=== PATIENT | female | born 1980 | race American Indian/Alaskan Native ===

== ENCOUNTER 2016-08-24 20:34 | Emergency (ER) | payer SELFPAY ==
[2016-08-24 21:25] VITALS: BP 156/95
[2016-08-24] MEDS ORDERED: MOTRIN PO ONE (23:50)
--- NOTE | 2016-08-25 00:12 | Emergency Department Report ---
ED Lower Extremity HPI - General Chief Complaint: Extremity Problem,Nontraumatic Stated Complaint: RT FOOT SWOLLEN/SORE Time Seen by Provider: 08/24/16 23:30 Source: patient Mode of arrival: Ambulatory Limitations: No Limitations - History of Present Illness Initial Comments: This is a 36-year-old female that presents with right anterior foot foot pain for a few years. Patient denies any trauma to the area. Patient describes pain as throbbing and rates it 8 out of 10. Patient stated the pain comes and goes. Patient stated received x-ray but many years ago. Patient denies any numbness or tingling sensation extremity. Patient does not seem toxic or ill in appearance. Patient denies any nausea or vomiting, chest pain, shortness of breath, numbness or tingling, or any deformities. Patient stated is ambulatory with no limitation. Patient denies any gait abnormalities. Patient denies any drug allergies. MD Complaint: other (foot pain) -: Gradual, year(s) Injury: Foot: Right Severity scale (0 -10): 8 Improves With: NSAID Associated Symptoms: denies: snap/pop sensation, swelling, numbness, tingling, unable to bear weight, able to partially bear weight, ambulatory - Related Data Previous Rx's Medication Instructions Recorded Last Taken Type Acetaminophen/Codeine [Tylenol #3] 1 tab PO Q6H PRN #20 tab 06/03/15 Unknown Rx methylPREDNISolone [Medrol Dose 4 mg PO DAILY #1 pack 06/03/15 Unknown Rx Pee] Ibuprofen [Motrin 600 MG tab] 600 mg PO Q8H PRN 5 Days 08/25/16 Unknown Rx Allergies Allergy/AdvReac Type Severity Reaction Status Date / Time No Known Allergies Allergy Unverified 06/03/15 15:47 ED Review of Systems ROS: Stated complaint: RT FOOT SWOLLEN/SORE Other details as noted in HPI Constitutional: denies: chills, fever Eyes: denies: eye pain, eye discharge, vision change ENT: denies: ear pain, throat pain Respiratory: denies: cough, shortness of breath, wheezing Cardiovascular: denies: chest pain, palpitations Endocrine: no symptoms reported Gastrointestinal: denies: abdominal pain, nausea, diarrhea Genitourinary: denies: urgency, dysuria, discharge Musculoskeletal: denies: back pain, joint swelling, arthralgia Skin: denies: rash, lesions Neurological: denies: headache, weakness, paresthesias Psychiatric: denies: anxiety, depression Hematological/Lymphatic: denies: easy bleeding, easy bruising ED Past Medical Hx - Past Medical History Previous Medical History?: No - Surgical History Past Surgical History?: No - Social History Smoking Status: Current Every Day Smoker Substance Use Type: None - Medications Home Medications: Home Medications Medication Instructions Recorded Confirmed Last Taken Type Acetaminophen/Codeine [Tylenol #3] 1 tab PO Q6H PRN #20 tab 06/03/15 Unknown Rx methylPREDNISolone [Medrol Dose 4 mg PO DAILY #1 pack 06/03/15 Unknown Rx Pee] Ibuprofen [Motrin 600 MG tab] 600 mg PO Q8H PRN 5 Days 08/25/16 Unknown Rx ED Physical Exam - General Limitations: No Limitations General appearance: alert, in no apparent distress - Head Head exam: Present: atraumatic, normocephalic - Eye Eye exam: Present: normal appearance - ENT ENT exam: Present: mucous membranes moist - Neck Neck exam: Present: normal inspection - Respiratory Respiratory exam: Present: normal lung sounds bilaterally. Absent: respiratory distress - Cardiovascular Cardiovascular Exam: Present: regular rate, normal rhythm. Absent: systolic murmur, diastolic murmur, rubs, gallop - GI/Abdominal GI/Abdominal exam: Present: soft, normal bowel sounds - Extremities Exam Extremities exam: Present: normal inspection, full ROM, tenderness (right anterior foot), normal capillary refill. Absent: pedal edema, joint swelling, calf tenderness - Expanded Lower Extremity Exam Right Hip exam: Present: normal inspection, full ROM. Absent: tenderness, swelling Upper Leg exam: Present: normal inspection, full ROM. Absent: tenderness, swelling Knee exam: Present: normal inspection, full ROM. Absent: tenderness, swelling Lower Leg exam: Present: normal inspection, full ROM. Absent: tenderness, swelling, abrasion Ankle exam: Present: normal inspection, full ROM. Absent: tenderness, swelling Foot/Toe exam: Present: normal inspection, full ROM, tenderness (anterior). Absent: swelling, abrasion, laceration, ecchymosis, deformity, dislocation, erythema, amputation, puncture wound, calcaneal tenderness, tenderness at base of 5th metatarsal, nail avulsion, subungual hematoma Neuro vascular tendon exam: Present: no vascular compromise Gait: Positive: observed and normal - Back Exam Back exam: Present: normal inspection, full ROM. Absent: tenderness, CVA tenderness (R), CVA tenderness (L) - Neurological Exam Neurological exam: Present: alert, oriented X3 - Psychiatric Psychiatric exam: Present: normal affect, normal mood - Skin Skin exam: Present: warm, dry, intact, normal color. Absent: rash ED Course Vital Signs 08/24/16 08/25/16 21:22 00:27 Temperature 99.2 F Pulse Rate 69 82 Respiratory 20 Rate Blood Pressure 156/95 O2 Sat by Pulse 100 Oximetry ED Lower Extremity MDM - Medical Decision Making Ed course: 36-year-old female that presents with chronic right foot pain 1- x-ray was obtained in the ED. X-ray results of foot:negative for fx 2- patient received 600 mg of ibuprofen for pain in the ED. 3- patient is aware of x-ray findings. 4- patient agrees to the discharge plan and treatment. No further questions noted by the patient. 5- Marlon badge to right foot. 6- I instructed the patient to follow up with orthopedic doctor in 3-5 days. 7- I instructed the patient to rest, elevate, ice the affected extremity Critical care attestation.: If time is entered above; I have spent that time in minutes in the direct care of this critically ill patient, excluding procedure time. ED Disposition Clinical Impression: Right foot strain Qualifiers: Encounter type: initial encounter Qualified Code(s): S96.911A - Strain of unspecified muscle and tendon at ankle and foot level, right foot, initial encounter Disposition: DISCHARGED TO HOME OR SELFCARE Is pt being admited?: No Does the pt Need Aspirin: No Condition: Stable Instructions: RICE Therapy (ED) Additional Instructions: Follow-up with the orthopedic doctor in 3-5 days If Symptoms worsen report back to emergency room Take ibuprofen as prescribed as needed Prescriptions: Ibuprofen [Motrin 600 MG tab] 600 mg PO Q8H PRN 5 Days PRN Reason: Pain Referrals: PRIMARY CARE, [Primary Care Provider] - 3-5 Days Forms: Work/School Release Form(ED)
--- NOTE | 2016-08-25 00:54 | XRay Report ---
FINAL REPORT PROCEDURE: XR FOOT 3 RT TECHNIQUE: RIGHT foot radiographs, AP, lateral, and oblique views. CPT 91556 HISTORY: Pain. COMPARISON: No prior studies are available for comparison. FINDINGS: Fracture (s) and/or Dislocation(s): None . Alignment: Normal . Joint space(s): Mild narrowing and osteophytes of the midfoot. Soft tissues: Normal . Bone mineralization: Normal . Foreign bodies: None . Calcaneal spurring: Plantar spur. IMPRESSION: No radiographic evidence of displaced fracture.
== END 2016-08-25 01:15 | disposition home or self-care (01) ==
LOC: ED 20:34
DX: S96.911A Strain of unspecified muscle and tendon at ankle and foot level, right foot, initial encounter (principal); F17.200 Nicotine dependence, unspecified, uncomplicated; X58.XXXA Exposure to other specified factors, initial encounter; Y93.89 Activity, other specified; Y99.9 Unspecified external cause status; Y92.89 Other specified places as the place of occurrence of the external cause

== ENCOUNTER 2016-11-21 16:38 | Emergency (ER) | payer MEDICAID ==
--- NOTE | 2016-11-21 17:04 | Emergency Department Report ---
Chief Complaint: Abdominal Pain Stated Complaint: BAD LOWER BACK/STOMACH PN/FOOT SWOLLEN Time Seen by Provider: 11/21/16 17:01 - HPI History of Present Illness: PT c/o lower abd pain x 3 days and urinary frequency PT states she did not take her bp medication today - ROS Review of Systems: + lower abd pain (feels like pain when she had ovarian cyst) - dysuria + back pain - Exam Physical Exam: PT looks well, non toxic. abd soft no cva tenderness fany pt with R lower back pain MSE screening note: Focused history and physical exam performed. Due to findings the following was ordered: labs, us, ua ED Disposition for MSE Condition: Stable
[2016-11-21 17:49] LABS: Alanine Aminotransferase 11 units/L (7-56); Albumin 3.8 g/dL (3.9-5); Albumin/Globulin Ratio 1.1 %; Alkaline Phosphatase 63 units/L (35-129); Anion Gap 18 mmol/L; BUN/Creatinine Ratio 13.75; Blood Urea Nitrogen 11 mg/dL (7-17); Calcium 9.1 mg/dL (8.4-10.2); Carbon Dioxide 24 mmol/L (22-30); Chloride 99.2 mmol/L (98-107); Glucose 123 mg/dL (65-100); Potassium 3.9 mmol/L (3.6-5.0); Sodium 137 mmol/L (137-145); Total Protein 7.2 g/dL (6.3-8.2)
[2016-11-21 18:04] LABS: Basophils % (Auto) 0.5 % (0.0-1.8); Eosinophils % (Auto) 1.7 % (0.0-4.3); Hematocrit 38.1 % (30.3-42.9); Hemoglobin 12.8 gm/dl (10.1-14.3); Mean Corpuscular HGB Conc 34 % (30-34); Mean Corpuscular Hemoglobin 32 pg (28-32); Mean Corpuscular Volume 94 fl (79-97); Platelet Count 261 K/mm3 (140-440); Red Blood Count 4.07 M/mm3 (3.65-5.03); Red Cell Distribution Width 13.9 % (13.2-15.2); White Blood Count 6.6 K/mm3 (4.5-11.0)
[2016-11-21 18:06] LABS: Bacteria,Urine 1+ /HPF (Negative); Bilirubin,Urine NEG (Negative); Blood,Urine NEG (Negative); Ketones,Urine NEG (Negative); Leukocyte Esterase,Urine MOD (Negative); Mucus,Urine FEW /HPF; Nitrite,Urine NEG (Negative); Protein,Urine <15 mg/dL mg/dL (Negative); Urobilinogen,Urine < 2.0 mg/dL (<2.0)
--- NOTE | 2016-11-21 19:26 | Ultrasound Report ---
FINAL REPORT PROCEDURE: Ultrasound pelvis transabdominal and transvaginal with Doppler imaging TECHNIQUE: Real-time transabdominal sonography in multiple planes of the pelvis was performed. The pelvic structures were not optimally visualized. Transvaginal sonography was then performed to better evaluate the structures and/or abnormalities described below with image documentation. Grayscale, color flow Doppler imaging and velocity spectral waveform analysis of the ovaries was employed (duplex imaging). CPT 97620, 01147, and 75656 HISTORY: R lower pelvic pain COMPARISON: No prior studies are available for comparison. FINDINGS: UTERUS Size: 8.2 x 4 x 4.8 cm. Endometrial thickness: 10 mm. Orientation: anteverted. Cervix: Normal. Fibroids/masses: None. RIGHT Ovary: 3.5 x 2.7 x 3 cm. Appearance: Complex cyst on the right ovary measures 2.4 centimeters. Doppler images: Normal spectral waveforms and color flow. The systolic and diastolic velocities are within normal limits. LEFT Ovary: 6.5 x 2.3 x 4.4 cm. Appearance: Multiple cysts identified on the left ovary. The largest measures 3.4 centimeters. This appears to be within the left ovary. A cystic structure in the distal fallopian tube is not excluded on the basis of this study.. Doppler images: Normal spectral waveforms and color flow. The systolic and diastolic velocities are within normal limits. Pelvic fluid: Moderate. Other: The examination is slightly limited due to the patient's body habitus. IMPRESSION: The left ovary is slightly enlarged with multiple cysts identified. The largest cyst measures 3.4 centimeters. A cyst in the distal left fallopian tube is not excluded. Followup study should be obtained to determine progression or resolution of the cysts. Complex cyst right ovary measures 2.4 centimeters. There is moderate fluid in the lower pelvis. The uterus has a normal appearance.
--- NOTE | 2016-11-21 19:26 | Ultrasound Report ---
FINAL REPORT PROCEDURE: US TRANSVAGINAL TECHNIQUE: Real-time transabdominal sonography in multiple planes of the pelvis was performed. The pelvic structures were not optimally visualized. Transvaginal sonography was then performed to better evaluate the structures and/or abnormalities described below with image documentation. Grayscale, color flow Doppler imaging and velocity spectral waveform analysis of the ovaries was employed (duplex imaging). CPT 96555, 50981, and 96338 HISTORY: R lower pelvic pain COMPARISON: No prior studies are available for comparison. FINDINGS: UTERUS Size: 8.2 x 4 x 4.8 cm. Endometrial thickness: 10 mm. Orientation: anteverted. Cervix: Normal. Fibroids/masses: None. RIGHT Ovary: 3.5 x 2.7 x 3 cm. Appearance: Complex cyst on the right ovary measures 2.4 centimeters. Doppler images: Normal spectral waveforms and color flow. The systolic and diastolic velocities are within normal limits. LEFT Ovary: 6.5 x 2.3 x 4.4 cm. Appearance: Multiple cysts identified on the left ovary. The largest measures 3.4 centimeters. This appears to be within the left ovary. A cystic structure in the distal fallopian tube is not excluded on the basis of this study.. Doppler images: Normal spectral waveforms and color flow. The systolic and diastolic velocities are within normal limits. Pelvic fluid: Moderate. Other: The examination is slightly limited due to the patient's body habitus. IMPRESSION: The left ovary is slightly enlarged with multiple cysts identified. The largest cyst measures 3.4 centimeters. A cyst in the distal left fallopian tube is not excluded. Followup study should be obtained to determine progression or resolution of the cysts. Complex cyst right ovary measures 2.4 centimeters. There is moderate fluid in the lower pelvis. The uterus has a normal appearance.
[2016-11-21] MEDS ORDERED: MACROBID PO ONE (20:57)
[2016-11-21] MEDS ORDERED: TORADOL IM ONE (21:01)
--- NOTE | 2016-11-21 21:03 | Emergency Department Report ---
HPI - General Chief Complaint: Abdominal Pain Time Seen by Provider: 11/21/16 17:01 - HPI HPI: This is a 36-year-old Afro-[place] female who presents to the emergency department, driving himself in to be seen, with complaint of pelvic discomfort has been going on for the past 3 days. She denies any vaginal bleeding, vaginal discharge, dysuria but does have some increased frequency of urination. She admits to a history of ovarian cysts. She has a primary care doctor at [facility] but does not have any [facility] REPAIRER. No recent travel or sick contacts at home. She took some ibuprofen for her symptoms with only a small amount of transient relief. There is no known aggravating or alleviating factors. ED Past Medical Hx - Past Medical History Previous Medical History?: Yes Hx Hypertension: Yes Additional medical history: OVARIAN CYST - Surgical History Past Surgical History?: No - Social History Smoking Status: Current Every Day Smoker Substance Use Type: Alcohol - Medications Home Medications: Home Medications Medication Instructions Recorded Confirmed Last Taken Type Acetaminophen/Codeine [Tylenol #3] 1 tab PO Q6H PRN #20 tab 06/03/15 Unknown Rx methylPREDNISolone [Medrol Dose 4 mg PO DAILY #1 pack 06/03/15 Unknown Rx Pee] Ibuprofen [Motrin 600 MG tab] 600 mg PO Q8H PRN 5 Days 08/25/16 Unknown Rx HYDROcodone/APAP 5-325 [Brea 1 each PO Q6HR PRN #10 tablet 11/21/16 Unknown Rx 5/325] Nitrofurantoin [place]/M-Cryst 100 mg PO Q12HR #14 capsule 11/21/16 Unknown Rx [Macrobid CAP] ED Review of Systems ROS: Stated complaint: BAD LOWER BACK/STOMACH PN/FOOT SWOLLEN Other details as noted in HPI Comment: All other systems reviewed and negative Constitutional: denies: chills, fever Eyes: denies: eye pain, eye discharge, vision change ENT: denies: ear pain, throat pain Respiratory: denies: cough, shortness of breath, wheezing Cardiovascular: denies: chest pain, palpitations Gastrointestinal: denies: nausea, vomiting Genitourinary: frequency, other (pelvic pain). denies: dysuria, discharge Musculoskeletal: denies: back pain, joint swelling, arthralgia Skin: denies: rash, lesions Neurological: denies: headache, weakness, paresthesias Physical Exam - Physical Exam Vital Signs: Vital Signs 11/21/16 17:02 Temperature 98.1 F Pulse Rate 69 Respiratory 18 Rate Blood Pressure 184/101 O2 Sat by Pulse 100 Oximetry Physical Exam: GENERAL: The patient is well-developed well-nourished. HEENT: Normocephalic. Atraumatic. Extraocular motions are intact. Patient has moist mucous membranes. Pupils equal reactive to light bilaterally. NECK: Supple. Trachea is midline. CHEST/LUNGS: Clear to auscultation. There is no respiratory distress noted. HEART/CARDIOVASCULAR: Regular. There is no tachycardia. There is no gallop rub or murmur. ABDOMEN: Abdomen is soft, nontender. Patient has normal bowel sounds. There is no abdominal distention. Obese habitus. Unable to reproduce lower abdominal /pelvic pain to palpation. SKIN: There is no rash. There is no edema. There is no diaphoresis. NEURO: The patient is awake, alert, and oriented. The patient is cooperative. The patient has no focal neurologic deficits. The patient has normal speech. MUSCULOSKELETAL: There is no tenderness or deformity. There is no limitation range of motion. There is no evidence of acute injury. ED Course Vital Signs 11/21/16 17:02 Temperature 98.1 F Pulse Rate 69 Respiratory 18 Rate Blood Pressure 184/101 O2 Sat by Pulse 100 Oximetry ED Medical Decision Making - Lab Data Result diagrams: 11/21/16 17:12 11/21/16 17:12 - Radiology Data Radiology results: report reviewed PROCEDURE: US TRANSVAGINAL TECHNIQUE: Real-time transabdominal sonography in multiple planes of the pelvis was performed. The pelvic structures were not optimally visualized. Transvaginal sonography was then performed to better evaluate the structures and/or abnormalities described below with image documentation. Grayscale, color flow Doppler imaging and velocity spectral waveform analysis of the ovaries was employed (duplex imaging). CPT 26650, 13769, [place] 67829 HISTORY: R lower pelvic pain COMPARISON: No prior studies are available for comparison. FINDINGS: UTERUS Size: 8.2 x 4 x 4.8 cm. Endometrial thickness: 10 mm. Orientation: anteverted. Cervix: Normal. Fibroids/masses: None. RIGHT Ovary: 3.5 x 2.7 x 3 cm. Appearance: Complex cyst on the right ovary measures 2.4 centimeters. Doppler images: Normal spectral waveforms and color flow. The systolic and diastolic velocities are within normal limits. LEFT Ovary: 6.5 x 2.3 x 4.4 cm. Appearance: Multiple cysts identified on the left ovary. The largest measures 3.4 centimeters. This appears to be within the left ovary. A cystic structure in the distal fallopian tube is not excluded on the basis of this study.. Doppler images: Normal spectral waveforms and color flow. The systolic and diastolic velocities are within normal limits. Pelvic fluid: Moderate. Other: The examination is slightly limited due to the patient's body habitus. IMPRESSION: The left ovary is slightly enlarged with multiple cysts identified. The largest cyst measures 3.4 centimeters. A cyst in the distal left fallopian tube is not excluded. Followup study should be obtained to determine progression or resolution of the cysts. Complex cyst right ovary measures 2.4 centimeters. There is moderate fluid in the lower pelvis. The uterus has a normal appearance. - Medical Decision Making 36-year-old female presents with some pelvic discomfort for the past 3 days. No dysuria, vaginal bleeding, vaginal discharge. Ultrasound shows multiple ovarian cysts with at least 2 on the left occluding possible adnexal cyst and a complex right ovarian cyst. This could be the source of her discomfort. Otherwise her labs are mostly unremarkable and do not show any etiology of her symptoms. The patient does have elevated blood pressure but has a history of hypertension and did not take her blood pressure medication today. It has come down slightly but she was also given a low dose of Catapres and encouraged to go home and take her blood pressure medication. She was given referrals for multiple [facility]OMETER REPAIRER group's encouragement to follow up with them regarding her ovarian cysts and encouragement follow-up with her PCP. She will return to the ER with any worsening of her symptoms or any acute distress. - Differential Diagnosis ovarian cyst, ovarian torsion, , fibroids, UTI Critical Care Time: No Critical care attestation.: If time is entered above; I have spent that time in minutes in the direct care of this critically ill patient, excluding procedure time. ED Disposition Clinical Impression: Ovarian cyst, Pelvic pain Hypertension Qualifiers: Hypertension type: essential hypertension Qualified Code(s): I10 - Essential ( primary) hypertension UTI (urinary tract infection) Qualifiers: Urinary tract infection type: acute cystitis Hematuria presence: without hematuria Qualified Code(s): N30.00 - Acute cystitis without hematuria Disposition: DC- TO HOME OR SELFCARE Is pt being admited?: No Condition: Stable Instructions: Ovarian Cyst (ED), Hypertension (ED) Additional Instructions: Please follow-up with an CHRONOMETER REPAIRER as soon as you're able to get an appointment regarding your multiple ovarian cysts and pelvic discomfort. Return to the emergency department with any worsening of your symptoms or any acute distress. Make sure to take her blood pressure medication once you return home tonight. Try to stay away from foods that are high in salt and caffeinated products to help with her blood pressure. Keep a blood pressure log. It is recommended that she follow-up with your primary care physician in the next few days if possible regarding your blood pressure. You've been prescribed a medication that is sedating. Therefore this medication cannot be mixed with alcohol, or taken prior to driving, working, or being responsible for children. Prescriptions: HYDROcodone/APAP 5-325 [Brea 5/325] 1 each PO Q6HR PRN #10 tablet PRN Reason: Pain Nitrofurantoin [place]/M-Cryst [Macrobid CAP] 100 mg PO Q12HR #14 capsule Referrals: [facility] [Provider Group] - 3-5 Days [facility] [Provider Group] - 3-5 Days [facility] [Provider Group] - 3-5 Days [facility] [Primary Care Provider] - 3-5 Days Time of Disposition: 21:24
[2016-11-21] MEDS ORDERED: CATAPRES PO ONE (21:13)
[2016-11-21 21:29] VITALS: BP 175/97
== END 2016-11-21 21:40 | disposition home or self-care (01) ==
LOC: ED 16:38
DX: N30.00 Acute cystitis without hematuria (principal); I10 Essential (primary) hypertension; N83.209 Unspecified ovarian cyst, unspecified side; R10.2 Pelvic and perineal pain; F17.200 Nicotine dependence, unspecified, uncomplicated
CPT/HCPCS: 36415; 76830; 80053; 81001; 84703; 85025; 93975; 96372; 99284; J1885